=== PATIENT | female | born 1990 | race Caucasian/White ===

== ENCOUNTER 2019-09-02 12:27 | Emergency (ER) | payer OTHER, SELFPAY ==
[2019-09-02 12:29] VITALS: BP 118/77; PULSE 54; RESP 16; TEMP 36.3; O2SAT 100; BMI 20.1
--- NOTE | 2019-09-02 13:10 | CT_ITS ---
STUDY: CT BRAIN WITHOUT CONTRAST REASON FOR EXAM: Female, 29 years old. Headache along the left posterior head that started today RADIATION DOSAGE (If Supplied By Facility): CTDIvol = ( 44.99 ) mGy, DLP = ( 694.87 ) mGycm TECHNIQUE: Transaxial CT imaging of the brain was performed without administration of intravenous contrast material. Individualized dose optimization techniques were used for this CT. COMPARISON: No relevant priors. FINDINGS: Normal soft tissue structures. Normal calvarium. Normal size ventricles and extra-axial spaces for the patient's age. Normal white matter tracts of the cerebral hemispheres. Normal basal ganglia and thalami. Normal brainstem. Normal cerebellum. There is no intracranial hemorrhage. There are no findings of an acute ischemic infarction. Normal visualized paranasal sinuses. CT/Brain/Head without Contrast IMPRESSION: Normal unenhanced CT scan of the brain. Electronically Signed: Galileo Bradley MD (Brooks) at 13:57 EST , Service support ,
[2019-09-02] MEDS: DiphenhydrAMINE 50 MG/ML Syringe 25 MG IV (13:30)
[2019-09-02] MEDS: 0.9% Normal Saline 1,000 ML 999 ML IV (13:30)
[2019-09-02] MEDS: proCHLORPERazine 10 MG/2 ML Vial IV (13:30)
--- NOTE | 2019-09-02 13:35 | ED.VIS.HA ---
History of Present Illness Chief Complaint: Headache Informant: Patient Onset: Today Context: Gradual Timing: Continuous Quality: Similar Prior Headaches, Sharp, Throbbing Current Severity: 08/09 Maximum Severity: 08/09 Associated Symptoms: Nausea, Vomiting, Preceding Aura, Visual Changes - with aura, now resolved, Photophobia Narrative: Patient is a 29-year-old female with history of headaches presenting with headache. Patient states she had an aura which she describes as a sudden vision change and then her headache started. She states this is normal for her. While she notes she has a history of what she describes as migraine headaches she is never been formally evaluated for them and never had a head CT. She notes the pain is more intense than her normal migraines. She had associated nausea and vomiting. She still vomiting. Her symptoms started about an hour prior to arrival. She has photophobia. She denies any neck pain or stiffness. In addition she developed a rash on her right abdomen earlier in the week (4 days ago) which she seemed to be shingles. She did have chickenpox as a child. She notes the pain associated with the rash seems to be improving however the rash looks a little bit worse. She denies any fever or chills. She denies any other complaints at this time. She did take a 600 mg ibuprofen when her headache started but she threw that up. Prior similar symptoms: Yes Recent Illness/Hospitalization: No Past Medical History - Allergies and Home Meds Allergies/Adverse Reactions: Allergies No Known Allergies Allergy (Unverified 09/02/19 12:30) Primary Care Physician: Aliyah Enrique PA-C [Primary Care Provider] - Past Medical History: - - headaches Surgical History: no surgical history Lives: Spouse/ Significant Other Smoking Status: Current every day smoker Review of Systems All systems negative except as indicated Eyes: Reports: Visual changes - bilaterally, - - photophobia Skin: Reports: Rash - right abdomen Neurological: Reports: Headache Physical Exam Vital Signs/Narrative: Vital Signs Temp Pulse Resp BP Pulse Ox 09/02/19 12:29 97.4 F L 54 L 16 118/77 100 Inital Vital Signs reviewed: Yes General: Well nourished, Well developed Head: NC, AT Eyes: Perrl, EOMI ENT: Moist mucous membranes, No rhinorrhea, - - No meningeal signs Neck: Supple, No Lymphadenopathy, No JVD, Nontender, No Meningismus Cardiovascular: Regular rate, Regular rhythm, No murmurs Respiratory: No distress, CTA bilaterally, Chest nontender Abdomen: Soft, Nontender, Nondistended, Normal bowel sounds Back: Nontender, Normal Inspection Extremities: Nontender, No edema Skin: Normal color, Rash - Clustered erythematous vesicular rash over right anterior, mid clavicular line abdominal wall consistent with shingles Neuro: Alert, Oriented x3, Cranial nerves II-XII grossly intact, Normal Strength, Normal Sensation, Normal DTR, Normal Gait Psychological: Normal affect Diagnostic/Tx/Re-eval Clinical Impression(s) from Imaging Studies Brain CT 09/02/19 13:10 IMPRESSION: Normal unenhanced CT scan of the brain. Electronically Signed: Galileo Bradley MD (Brooks) at 13:57 EST , Service support , - Medical Decision Making She is evaluated for headache as well as a rash on her abdomen. She came in for the headache but also comments that she thinks she has shingles. Rashes consistent with shingles. Her pain is already improving and I do not think she needs antiviral gabapentin at this time. No signs of secondary infection or cellulitis. Headache is described as a classical migraine. She had a normal aura. She does have a history of migraines but has never had it evaluated I did perform a head CT which is negative for any acute process or mass-effect. Patient is given a migraine cocktail does have improvement. She does get an antsy feeling in her legs after receiving Reglan but the Benadryl seems to help with this. Likely this is mild akathisia. Patient is counseled to continue take Benadryl as needed at home for this. She has normal neurologic exam. She does not have any meningeal signs and I do not suspect viral meningitis at this time. Patient is counseled on signs and symptoms requiring return to the emergency room. Patient verbalizes agreement and understand this plan. Patient discharged home in stable and improved condition. ED Disposition - Plan for ED Patient: Disposition: Home or Assisted Living Instructions: Shingles (Herpes Zoster), ED, Migraine (Classical) Referrals: Aliyah Enrique PA-C [Primary Care Provider] - Additional Instructions: Take alternating Tylenol and ibuprofen as needed for pain. You can use [id number] Lidoderm patches for the shingles pain. Follow-up with your primary care doctor. Return to emergency room if you develop worsening symptoms or fever.
[2019-09-02 15:02] VITALS: BP 127/62; PULSE 64; RESP 15; O2SAT 99
[2019-09-02] MEDS: Ketorolac 15 MG/ML Vial IV (15:03)
[2019-09-02 15:52] VITALS: BP 118/63; PULSE 72; RESP 16; O2SAT 99
== END 2019-09-02 15:52 | disposition home or self-care (01) ==
PROVIDERS: Emergency Provider Emergency Medicine; Family Provider Family Medicine; PCP Family Medicine
DX: G43.909 Migraine, unspecified, not intractable, without status migrainosus (principal); R21 Rash and other nonspecific skin eruption; F17.200 Nicotine dependence, unspecified, uncomplicated
CPT/HCPCS: 70450; 96361; 96374; 96375; 99284; J7030; A4216

== ENCOUNTER 2024-07-28 22:31 | Emergency (ER) | payer OTHER, SELFPAY ==
[2024-07-28 22:31] VITALS: BP 116/80; PULSE 63; RESP 16; TEMP 36.6; O2SAT 97; BMI 22.7
[2024-07-28 23:35] VITALS: BP 115/69; PULSE 74; RESP 16; TEMP 37.3; O2SAT 99
--- NOTE | 2024-07-28 23:54 | RAD_ITS ---
EXAM: XR CHEST, 2 VIEWS CLINICAL INDICATION: cough TECHNIQUE: Frontal and lateral views of the chest. COMPARISON: No relevant prior studies available. FINDINGS: LUNGS AND PLEURAL SPACES: Unremarkable. No consolidation or edema. No pneumothorax. No effusion. HEART: Unremarkable. Cardiac silhouette not enlarged. MEDIASTINUM: Central airways and mediastinal contour are unremarkable. BONES/JOINTS: Unremarkable. No acute fracture. SOFT TISSUES: Unremarkable. RAD/Chest PA and Lateral IMPRESSION: No radiographic evidence of acute cardiopulmonary disease. Electronically Signed: Felton Summers MD at 0:30 EDT ,
[2024-07-29] VITALS: BP 110/70; PULSE 75; RESP 16; TEMP 37.2; O2SAT 99
[2024-07-29] MEDS: Morphine 4 MG/ML Syringe IV
[2024-07-29] MEDS: Ondansetron 4 MG/2 ML Vial IV (00:01)
[2024-07-29] MEDS: dexAMETHasone 10 MG/ML Vial IV (00:01)
[2024-07-29] MEDS: 0.9% Normal Saline (1000mL) 1,000 ML 999 ML IV (00:01)
[2024-07-29 00:15] LABS: Absolute Lymphocyte Count 12.77 X10^3/uL (0.83-4.51); Absolute Neutrophil Count 5.5 X10^3/uL (2.0-7.7); Basophil% 0.5 % (0-1); Eosinophil# 0.06 X10^3/uL; Eosinophils% 0.3 % (0-5); Hematocrit 43.4 % (37-47); Hemoglobin 13.9 g/dL (12.0-15.0); Lymphocyte # 12.77 X10^3/ul (0.83-4.51); Lymphocyte % 59.1 % (19-41); Mean Corpuscular Hgb 29.3 pg (27.0-32.0); Mean Corpuscular Volume 91.6 fL (81-99); Mean Platelet Vol. 10.7 fl (6.2-12.0); Monocyte# 3.01 X10^3/uL; Monocyte% 13.9 % (0-10); NRBC Flagged by Analyzer 0 % (0-5); Neutrophil # 5.49 X10^3/uL (2.7-7.7); Neutrophil % 25.5 % (47-70); POSITIVE DIFFERENTIAL YES; POSITIVE MORPHOLOGY YES; Platelet Count 256 K/mm3 (150-450); RBC Distribution Width CV 13.2 % (11.6-14.6); RBC Distribution Width SD 44.6 fl (35.1-43.9); Red Blood Count 4.74 M/mm3 (4.2-5.4); White Blood Count 21.6 K/mm3 (4.4-11.0)
[2024-07-29 00:21] LABS: AST(SGOT) 134 U/L (15-37); Alanine Aminotransfer ALT/SGPT 341 U/L (13-56); Albumin, Serum 3.3 g/dL (3.2-5.0); Alkaline Phosphatase 115 U/L (45-117); Anion Gap 6 (5-15); BUN 16 mg/dL (7-18); BUN/Creat Ratio 15.5 RATIO (10-20); Bilirubin, Direct 0.13 mg/dL (0.00-0.30); Calcium,Total 8.7 mg/dL (8.5-10.1); Chloride 102 mmol/L (98-107); Creatinine, Serum 1.03 mg/dL (0.55-1.02); Differential Indicated SCAN CRITERIA MET; EST Glomerular Filtration Rate 65 mL/min (>60); Est Glom Filt Rate - Afr Amer 79 mL/min (>60); Estimated Creatinine Clearance 74.84 ml/min; Globulin 3.8 g/dL (2.2-4.2); Glucose 95 mg/dL (74-106); Potassium 3.9 mmol/L (3.5-5.1); Protein, Total 7.1 g/dL (6.4-8.2); Sodium Level 138 mmol/L (136-145)
[2024-07-29 01:00] VITALS: BP 110/80; PULSE 80; RESP 16; TEMP 37.2
[2024-07-29 01:05] LABS: Differential Comment SCANNED; Reactive Lymphocyte 3+
--- NOTE | 2024-07-29 01:14 | EDS_ITS ---
HPI History of Present Illness Chief Complaint: Fever Informant: patient and family Narrative Narrative: Patient is a 34-year-old female with past medical history of anxiety/depression. She states that she was recently diagnosed with mono. She reports that she had a fever for approximately 9 days with the mono diagnosis and was currently on prednisone. She states that the fever resolved on Tuesday and she was starting to feel somewhat better when today she spiked a fever of approximately 101 at home. She reports she has had mild congestion and cough and has also had a increase in her sore throat. With concern for worsening infection she presents for evaluation [facility] Medical History no medical history Home Medications ?Medication ?Instructions ?Recorded ?Last Taken ?Type escitalopram oxalate 10 mg tablet 10 mg PO DAILY 07/28/24 Unknown History cefdinir 300 mg capsule 300 mg PO BID 7 days #14 caps 07/29/24 Unknown Rx oxycodone-acetaminophen 5 mg-325 1 tab PO Q6H PRN pain 3 days #12 07/29/24 Unknown Rx mg tablet (Percocet) tabs Allergy/AdvReac Type Severity Reaction Status Date / Time No Known Allergies Allergy Verified 07/28/24 22:36 Social History Smoking Status: Never smoker ROS [facility] ED Constitutional Constitutional ED: Reports chills and fever(s) Eyes Eyes: Denies blurry vision or change in vision ENT ENT ED: Reports rhinorrhea and sore throat; Denies ear pain Respiratory/Chest Respiratory/Chest: Reports cough; Denies dyspnea Gastrointestinal Gastrointestinal: Reports nausea; Denies abdominal pain, diarrhea or vomiting Genitourinary Genitourinary ED: Denies dysuria Musculoskeletal Musculoskeletal: Reports myalgias Integumentary Denies rash Neurologic Neurologic: Denies headache(s) Psychiatric Psychiatric: Reports anxiety and depression Allergic/Immunologic Allergic/Immunologic ED: Denies mouth swelling or tongue swelling EXAM Physical Exam Const Vital Signs: 07/28/24 22:31 07/28/24 22:54 07/28/24 23:35 Temperature 97.9 F 99.1 F Temperature Source Oral Temporal Pulse Rate 63 74 Respiratory Rate 16 16 Respiratory Effort Normal Respiratory Pattern Normal Blood Pressure 116/80 115/69 Blood Pressure Mean 92 84 Pulse Ox 97 99 Oxygen Delivery Method Room Air 07/29/24 00:00 07/29/24 01:00 07/29/24 01:28 Temperature 99 F 99.0 F 98 F Temperature Source Temporal Oral Pulse Rate 75 80 81 Respiratory Rate 16 16 16 Respiratory Effort Respiratory Pattern Blood Pressure 110/70 110/80 109/78 Blood Pressure Mean 83 90 88 Pulse Ox 99 98 Oxygen Delivery Method Room Air Room Air Positive well nourished and well developed General Appearance ED: well developed; Negative for pallor HEENT Reports TM's clear and moist mucous membranes HEENT Narrative: Patient has +3 tonsils hypertrophy bilaterally with diffuse erythema and exudate No trismus change in voice or difficulty with secretions. No abscess formation noted. Tympanic Membrane ED: Yes TM's clear Eyes PERRL and EOMs intact bilaterally General Eye ED: Negative for scleral icterus Neck supple Neck Narrative: No nuchal rigidity or meningeal sign There is tender anterior cervical lymphadenopathy noted Resp normal respiratory effort and clear to auscultation bilaterally Cardio regular rate and regular rhythm GI normal to inspection, nondistended, normoactive bowel sounds, non-tender, non- distended and no masses Auscultation: normoactive bowel sounds Palpation: soft Back/Spine no CVA tenderness Extremity normal to inspection Neuro oriented x3, CN's II-XII intact bilaterally and no sensory deficits noted Sensorium / Orientation: alert Motor Exam: strength 5/5 throughout Psych mental status grossly normal Skin no rashes or lesions noted General Skin Exam: Negative for jaundice or pallor MDM MDM MDM Narrative Medical decision making narrative: Patient arrived to the ER afebrile but did report taking Tylenol prior to arrival. She reports a history of mono diagnosed recently in her posterior pharynx and does show changes consistent with this. However as she reports that she was fever free for 2 days and then return to fever there is concern for secondary infection such as strep throat versus pneumonia versus COVID versus influenza versus RSV. Secondary to this a viral swab strep swab chest x-ray and basic labs were obtained. Patient's white count is elevated but this is consistent with her recent steroid use. Otherwise the patient's liver enzymes are elevated consistent with recent diagnosis of mono. Chest x-ray revealed no acute lung pathology and viral swab was negative. However the strep test was positive which would correlate with her reported worsening sore throat and the physical exam. At this time she does not have signs of peritonsillar abscess and there is no difficulty with secretions nor is there any type of airway compromise so there is no need for further workup. As patient has mono I will refrain from penicillin-based antibiotic as this can cause a rash and will instead start her on Omnicef which should also take care of any type of strep infection. At this time she is hemodynamically stable she is in no respiratory distress she is not difficulty with secretions she does not have findings concerning for sepsis and therefore she is otherwise safe for discharge History & Record Review Discussion w/independent historian: Patient Lab Data Attestation: I reviewed the patient's lab results. Labs: Laboratory Results - last 24 hr 07/28/24 23:30 WBC 21.6 H RBC 4.74 Hgb 13.9 Hct 43.4 MCV 91.6 MCH 29.3 MCHC 32.0 RDW Std Deviation 44.6 H RDW Coeff of Rivka 13.2 Plt Count 256 MPV 10.7 Immature Gran % (Auto) 0.700 Neut % (Auto) 25.5 L Lymph % (Auto) 59.1 H Colquitt % (Auto) 13.9 H Eos % (Auto) 0.3 Baso % (Auto) 0.5 Absolute Neuts (auto) 5.5 Absolute Lymphs (auto) 12.77 H Nucleated RBC % 0 Differential Comment SCANNED Diff Path Review May foll Reactive Lymphocytes 3+ Sodium 138 Potassium 3.9 Chloride 102 Carbon Dioxide 30.0 Anion Gap 6 BUN 16 Creatinine 1.03 H Estim Creat Clear Calc 74.84 Est GFR (MDRD) Af Amer 79 Est GFR (MDRD) Non-Af 65 BUN/Creatinine Ratio 15.5 Glucose 95 Calcium 8.7 Total Bilirubin 0.30 Direct Bilirubin 0.13 AST 134 H ALT 341 H Alkaline Phosphatase 115 Total Protein 7.1 Albumin 3.3 Globulin 3.8 Radiography Diagnostic Testing: Clinical Impression(s) from Imaging Studies Chest X-Ray 07/28/24 23:54 IMPRESSION: No radiographic evidence of acute cardiopulmonary disease. Electronically Signed: Felton Summers MD at 0:30 EDT , Chest x-ray as interpreted by the emergency medicine physician reveals no acute infiltrate pneumothorax or pleural effusion Discharge Plan Triage Chief Complaint: Fever ED Provider: Dony Hallman Dx/Rx/DC Orders Clinical Impression: Acute streptococcal pharyngitis, Mononucleosis, Anxiety and depression Instructions: ED Mononucleosis, ED Pharyngitis, Strep (Confirmed) Prescriptions: New cefdinir 300 mg capsule 300 mg PO BID 7 Days Qty: 14 0RF oxycodone-acetaminophen [Percocet] 5-325 mg tablet 1 tab PO Q6H PRN (Reason: pain) 3 Days Qty: 12 0RF No Action escitalopram oxalate 10 mg tablet 10 mg PO DAILY Stand Alone Forms: ED Work / School Excuse Primary Care Provider: Fortunato Munguia Referrals: Fortunato Munguia PA [Primary Care Provider] - Activity Restrictions/Additional Instructions: Please continue with Tylenol and/or Motrin for the next few days to help with fever control secondary to your strep pharyngitis. Take the antibiotic as directed to resolve the infection and return to the ER should you have any further concerns Print Language: Vietnamese Disposition Disposition: Home, Self Care Discharge Date/Time: 07/29/24 01:36
[2024-07-29] MEDS: Cefdinir 300 MG Capsule PO (01:25)
[2024-07-29] MEDS: oxyCODONE 5 MG Tablet PO (01:25)
[2024-07-29 01:28] VITALS: BP 109/78; PULSE 81; RESP 16; TEMP 36.6; O2SAT 98
[2024-07-30 12:59] LABS: Pathologist Review Reviewed
== END 2024-07-29 01:36 | disposition home or self-care (01) ==
PROVIDERS: Emergency Provider Emergency Medicine; PCP Physician Assistant; Visit Provider Emergency Medicine
DX: J02.0 Streptococcal pharyngitis (principal); B27.90 Infectious mononucleosis, unspecified without complication; F41.8 Other specified anxiety disorders; R50.9 Fever, unspecified
CPT/HCPCS: 71046; 80048; 80076; 85025; 87631; 87651; 96361; 96374; 96375; 99284; J7030; A4216; J2405

== ENCOUNTER → 2024-10-10 | Outpatient (CLI) | payer OTHER, SELFPAY ==
[2024-10-10 12:48] LABS: Absolute Lymphocyte Count 1.46 X10^3/uL (0.83-4.51); Absolute Neutrophil Count 4.8 X10^3/uL (2.0-7.7); Basophil# 0.04 X10^3/uL; Basophil% 0.6 % (0-1); Eosinophil# 0.06 X10^3/uL; Eosinophils% 0.8 % (0-5); Hematocrit 42.7 % (37-47); Hemoglobin 13.8 g/dL (12.0-15.0); Lymphocyte # 1.46 X10^3/ul (0.83-4.51); Lymphocyte % 20.5 % (19-41); Mean Corp Hgb Conc 32.3 g/dL (32-36); Mean Corpuscular Hgb 29.4 pg (27.0-32.0); Mean Corpuscular Volume 90.9 fL (81-99); Mean Platelet Vol. 10.9 fl (6.2-12.0); Monocyte# 0.69 X10^3/uL; Monocyte% 9.7 % (0-10); NRBC Flagged by Analyzer 0 % (0-5); Neutrophil # 4.84 X10^3/uL (2.7-7.7); Neutrophil % 68.1 % (47-70); Platelet Count 301 K/mm3 (150-450); White Blood Count 7.1 K/mm3 (4.4-11.0)
[2024-10-10 13:46] LABS: ALB/GLOB Ratio 1.1 RATIO (0.9-2.4); AST(SGOT) 22 U/L (15-37); Alanine Aminotransfer ALT/SGPT 27 U/L (13-56); Alkaline Phosphatase 61 U/L (45-117); Anion Gap 3 (5-15); BUN 19 mg/dL (7-18); BUN/Creat Ratio 21.8 RATIO (10-20); CRP < 2.90 mg/L (0.0-3.0); Calcium,Total 9.3 mg/dL (8.5-10.1); Chloride 107 mmol/L (98-107); Creatinine, Serum 0.87 mg/dL (0.55-1.02); EST Glomerular Filtration Rate 79 mL/min (>60); Est Glom Filt Rate - Afr Amer 95 mL/min (>60); Globulin 3.7 g/dL (2.2-4.2); Glucose 62 mg/dL (74-106); Potassium 3.9 mmol/L (3.5-5.1); Protein, Total 7.7 g/dL (6.4-8.2); Sodium Level 139 mmol/L (136-145)
[2024-10-11 05:07] LABS: Immunoglobulin A 198 mg/dL (87-352); Immunoglobulin G 1386 mg/dL (586-1602); Immunoglobulin M 77 mg/dL (26-217)
[2024-10-11 13:07] LABS: ANTINUCLEAR ANTIBODIES DIRECT Negative (Negative)
== END | disposition home or self-care (01) ==
LOC: BIMLAB 09:06
PROVIDERS: PCP Physician Assistant; Referring Provider Physician Assistant; Visit Provider Physician Assistant
DX: R53.83 Other fatigue (principal); D72.829 Elevated white blood cell count, unspecified; R74.8 Abnormal levels of other serum enzymes; B99.9 Unspecified infectious disease
CPT/HCPCS: 36415; 80053; 82784; 84443; 85025; 86038; 86140; 86225; 86235

== ENCOUNTER 2025-08-15 11:24 | Emergency (ER) | payer OTHER, SELFPAY ==
[2025-08-15 11:25] VITALS: BP 103/71; PULSE 59; RESP 14; TEMP 36.4; O2SAT 100; BMI 21.7
--- NOTE | 2025-08-15 12:18 | EDS_ITS ---
HPI HPI - GI History of Present Illness Chief Complaint: Abd Pain Informant: patient Abdominal Pain/Flank Pain Onset: Weeks (4) Context: Gradual Onset Timing: Intermittent Quality: - (Squeezing) Location: - (Right mid abdomen and periumbilical area) Worsened by: Food Relieved by: Nothing Nausea/Vomiting/Emesis GI Symptom: Positive for Nausea; Negative for Vomiting Diarrhea/Melena/Hematochezia GI Symptom: Positive for Diarrhea; Negative for Melena or Hematochezia Associated Symptoms Associated Symptoms: Negative for Dysuria, Frequency or Hematuria Narrative Narrative: Patient presents with right-sided abdominal pain that has been intermittent over the past 4 weeks. Patient states it is over the right mid abdomen. Patient describes it as a squeezing sensation. Patient states it does get worse after eating. Patient states nothing seems to help with it. Patient does admit to some nausea and decreased appetite. Patient states she did have some diarrhea. Patient denies any melena or hematochezia. Patient denies any dysuria, frequency, or hematuria. Patient states her last menstrual period was approximately 2 weeks ago. Patient denies any fevers or chills. PFSH [facility] Medical History Health care maintenance Vagina, candidiasis History of pre-term labor MTHFR gene mutation Head ache Bone fracture Home Medications ?Medication ?Instructions ?Recorded ?Last Taken ?Type escitalopram oxalate 10 mg tablet 10 mg PO DAILY #90 t abs 06/10/25 Unknown Rx sulfamethoxazole 800 1 tab PO BID #6 TABLETS 07/31 04/24 Unknown Rx mg-trimethoprim 160 mg tablet Allergy/AdvReac Type Severity Reaction Status Date / Time No Known Allergies Allergy Verified 08/15/25 11:28 Family History Grandmother Cancer, Onset Age: 70 breast cancer Hypertension CVA (cerebral vascular accident) Spinal stenosis Grandmother Diabetes Grandfather Diabetes Respiratory disease Grandfather Spinal stenosis Surgical History History of Social History household members: spouse and children housing: house current occupational status: employed current occupation: teacher first grade Smoking Status: Never smoker alcohol intake: never substance use type: does not use what type of physical activity do you participate in: walking and weight training seatbelt use: always do you feel safe at home: Yes ROS ROS ED Constitutional Constitutional ED: Denies chills or fever(s) Eyes Eyes: Denies blurry vision or change in vision ENT ENT ED: Denies rhinorrhea or sore throat Cardiovascular Cardiovascular: Denies chest pain or palpitations Respiratory/Chest Respiratory/Chest: Denies cough or dyspnea Gastrointestinal Gastrointestinal: Reports abdominal pain, diarrhea and nausea; Denies vomiting Genitourinary Genitourinary ED: Denies dysuria or hematuria Musculoskeletal Musculoskeletal: Denies back pain or neck pain Integumentary Denies abscess or rash Neurologic Neurologic: Reports headache(s); Denies weakness Allergic/Immunologic Allergic/Immunologic ED: Denies mouth swelling or urticaria EXAM Physical Exam Const Vital Signs: 08/15/25 11:25 Temperature 97.6 F L Temperature Source Oral Pulse Rate 59 L Respiratory Rate 14 Blood Pressure 103/71 Blood Pressure Mean 81 Pulse Ox 100 Positive well nourished and well developed General Appearance ED: well developed and NAD HEENT Reports moist mucous membranes Neck supple and no JVD Resp normal respiratory effort and clear to auscultation bilaterally Cardio regular rate and regular rhythm GI non-distended Palpation: soft and tender periumbilical (And right mid abdomen); Negative for guarding or rebound tenderness present Extremity full ROM General Extremety ED: Negative for edema or tenderness General Extremity: Negative for edema Neuro CN's II-XII intact bilaterally, moves all extremities and no sensory deficits noted Sensorium / Orientation: alert Motor Exam: strength 5/5 throughout Psych mental status grossly normal MDM MDM MDM Narrative Medical decision making narrative: Differential diagnosis includes appendicitis, abdominal hernia, umbilical hernia, gastroenteritis, urinary tract infection, ectopic , and viral illness. CBC will be obtained to assess for leukocytosis and anemia. Basic metabolic profile will be obtained to assess for electrolyte abnormality and renal function. Serum hCG will be obtained to assess for . Urinalysis will be obtained to assess for urinary tract infection and hematuria. CT scan of the abdomen and pelvis will be obtained to assess for appendicitis, bowel obstruction, perforation, and abdominal hernia. Lab Data Attestation: I reviewed the patient's lab results. Lab results narrative: CBC was reviewed and was within normal limits. Basic metabolic profile was reviewed and was essentially within normal limits. Serum hCG was reviewed and was negative. Urinalysis was reviewed. Leukocyte esterase was 500 with 10-25 white blood cells and 2+ bacteria. There are 5-10 epithelial cells. Radiography Diagnostic Testing: CT scan of the abdomen and pelvis was obtained. There is a small follicle in the ovary. There is no other acute abnormality noted. There is no free air. There is no evidence of appendicitis. There is no hernia noted. There is no evidence of bowel obstruction or perforation. This was interpreted by the radiologist and was also independently reviewed by myself. Treatment and Re-Evaluation :: Patient was feeling better on reevaluation. Patient was advised of her findings. Patient was given a dose of Bactrim here. Patient was given a prescription for Bactrim. Patient was instructed to follow-up with her primary care physician in 3 to 5 days for further evaluation. Patient understood and was agreeable with plan. All questions were answered. Discharge Plan Triage Chief Complaint: Abd Pain ED Provider: Sonu Wade Dx/Rx/DC Orders Clinical Impression: Abdominal pain, Urinary tract infection Instructions: ED Cystitis Female Adult Prescriptions: New sulfamethoxazole-trimethoprim 800-160 mg tablet 1 tab PO BID Qty: 6 0RF No Action escitalopram oxalate 10 mg tablet 10 mg PO DAILY Qty: 90 1RF Primary Care Provider: Virginia Elizabeth Referrals: Virginia Elizabeth MD [Primary Care Provider, Internal Medicine] - 3-5 Days Print Language: Cape Verdean Disposition Disposition: Home, Self Care
--- NOTE | 2025-08-15 12:41 | CT_ITS ---
PROCEDURE: ABDOMEN/PELVIS W IV CONT ONLY 08/15/2025 REASON FOR EXAM: ABDOMINAL PAIN 4 week history of intermittent right lower quadrant pain. TECHNIQUE: Procedure Code: [id number] Modality: CT Procedure: ABDOMEN/PELVIS W IV CONT ONLY Coronal and Sagittal reconstruction series were provided. CONTRAST: Isovue-300 VOLUME: 100 mL One or more dose reduction techniques were used (e.g., Automated exposure control, adjustment of the mA and/or kV according to patient size, use of iterative reconstruction technique. RADIATION DOSE SUMMARY: CTDlvol: 14.4 mGy DLP: 432.36 mGycm COMPARISON: None FINDINGS: Lung bases: Lung bases are clear. Liver: Normal size. No mass. Gallbladder: The gallbladder is unremarkable. Spleen: Normal size. Pancreas: Normal size without evidence of mass surrounding inflammation or ductal dilation. Adrenals: Unremarkable Kidneys: Normal renal sizes. No hydronephrosis. Bladder: Unremarkable Reproductive Organs: Normal uterine size and contour. Ovaries are unremarkable. Small follicle in the right ovary. Bowel: Unremarkable. Fecal material is seen throughout the colon. Appendix: The appendix is not identified. There is no inflammatory process identified in the right lower quadrant to suggest appendicitis. Lymph nodes: Unremarkable. Vasculature: The abdominal aorta and IVC are normal. Peritoneum / Retroperitoneum: Unremarkable Bones: Unremarkable CT/Abdomen/Pelvis W IV Cont ONLY IMPRESSION: Small follicle in the right ovary. No acute abnormality is seen. Reading Location: [place] [id number]
[2025-08-15 12:47] LABS: Mucous, Urine 0 SEEN /hpf (<or=2+); Red Blood Cells-Urine 0 SEEN /hpf (0-5)
[2025-08-15 12:49] LABS: Hematocrit 45.8 % (37-47); Hemoglobin 14.9 g/dL (12.0-15.0); Immature Granulocytes Count 0.020 X10^3/uL (0.0-0.0); Mean Corp Hgb Conc 32.5 g/dL (32-36); Mean Corpuscular Volume 91.8 fL (81-99); Mean Platelet Vol. 11.1 fl (6.2-12.0); NRBC Flagged by Analyzer 0 % (0-5); Platelet Count 280 K/mm3 (150-450); RBC Distribution Width CV 12.5 % (11.6-14.6); RBC Distribution Width SD 42.0 fl (35.1-43.9); Red Blood Count 4.99 M/mm3 (4.2-5.4); White Blood Count 7.6 K/mm3 (4.4-11.0)
[2025-08-15 12:52] LABS: Color, Urine Yellow (Yellow); Glucose, Dipstick Normal (Normal); Ketone-Dipstick Negative (Negative); Leukocyte Esterase-Dipstick 500 /ul (Negative); Nitrite-Dipstick Negative (Negative); Occult Blood-Urine 10 /ul (Negative); Protein-Dipstick 15 mg/dl (Negative); Specific Gravity, Urine 1.005 (1.002-1.030); Urine Bilirubin Dipstick Negative (Negative)
[2025-08-15 13:01] LABS: Squamous Epithelial Cells - UA 5-10 SEEN /hpf (5-10)
[2025-08-15 13:32] LABS: Anion Gap 10 (5-15); BUN 15 mg/dL (4-19); BUN/Creat Ratio 14.7 RATIO (10-20); Calcium,Total 9.8 mg/dL (7.6-11.0); Carbon Dioxide 27.9 mmol/L (21.0-32.0); Chloride 103 mmol/L (98-108); Estimated Creatinine Clearance 73.42 ml/min (50-250); Glucose 66 mg/dL (70-99); Potassium 3.8 mmol/L (3.3-5.1)
[2025-08-15 13:38] LABS: Internal QC Validated? YES +Cl - CLEAR BKGD; Pregnancy, Serum, hCG Quali. NEGATIVE Negative
[2025-08-15 13:39] LABS: Record Kit Lot#, Serum Preg. 980607
[2025-08-15 13:45] VITALS: BP 106/78; PULSE 61; RESP 16; O2SAT 99
[2025-08-15 15:28] VITALS: BP 105/64; PULSE 61; RESP 14; O2SAT 100
[2025-08-15] MEDS: Smz/Tmp Ds Tablet 1 TABLET PO (15:28)
[2025-08-15 15:29] VITALS: BP 105/64; PULSE 61; RESP 14; TEMP 36.6; O2SAT 100
== END 2025-08-15 15:29 | disposition home or self-care (01) ==
PROVIDERS: Emergency Provider Emergency Medicine; PCP Internal Medicine; Visit Provider Emergency Medicine
DX: R10.9 Unspecified abdominal pain (principal); N39.0 Urinary tract infection, site not specified
CPT/HCPCS: 74177; 80048; 81001; 84703; 85025; 99283; Q9967; A4216